=== PATIENT | female | born 1970 | race Hispanic/Latino ===

== ENCOUNTER 2018-03-26 07:35 | Emergency (ER) | payer OTHER ==
[2018-03-26 07:36] VITALS: BMI 20.3
--- NOTE | 2018-03-26 07:53 | ED PDOC ---
Arrival/HPI - General Time Seen by Provider: 03/26/18 07:40 Allergies/Home Meds Allergies/Adverse Reactions: Allergies No Known Allergies Allergy (Verified 12/06/12 08:54)
--- NOTE | 2018-03-26 07:54 | ED PDOC ---
Arrival/HPI - General Time Seen by Provider: 03/26/18 07:40 Historian: Patient - History of Present Illness Narrative History of Present Illness (Text): 03/26/18 07:53 A 47 year old female with no significant past medical history presents to the emergency department complaining of right eye swelling since this morning. Patient reports when she woke up earlier today and felt itchiness/irritation to her right eye and she started scratching/rubbing the area. She noticed later that the area around her eye became swollen. She denies any further irritation or itchiness. Patient notes she wears contacts but did not wear them while sleeping and only her right eye is affected. Patient denies any current eye pain, discharge, vision changes, or any other complaints. Time/Duration: 1-3 hours (Earlier this morning) Symptom Onset: Gradual Symptom Course: Improving Activities at Onset: Light Context: Home Past Medical History - Provider Review Nursing Documentation Reviewed: Yes Family/Social History - Physician Review Nursing Documentation Reviewed: Yes Family/Social History: No Known Family HX Allergies/Home Meds Allergies/Adverse Reactions: Allergies No Known Allergies Allergy (Verified 12/06/12 08:54) Review of Systems - Physician Review All systems were reviewed & negative as marked: Yes - Review of Systems Constitutional: absent: Fevers Eyes: absent: Vision Changes, Eye Pain, Other (no discharge) Physical Exam - Physical Exam Narrative Physical Exam (Text): 03/26/18 07:57 Constitutional: No acute distress. Head: Normocephalic. Atraumatic. Eyes: PERRL. EOMI. No conjunctival injection. No discharge. No foreign objects under eyelids. ENT: Moist mucous membranes. Musculoskeletal: No tenderness or swelling of extremities. Skin: No rash. No erythema. Area between right eye and right bridge, mildly edematous, nontender. No induration. Neurologic: Alert, no focal deficit. Vital Signs Reviewed: Yes Temperature: Afebrile Blood Pressure: Normal Pulse: Regular Respiratory Rate: Normal Appearance: Positive for: Well-Appearing, Non-Toxic, Comfortable Pain Distress: None Mental Status: Positive for: Alert and Oriented X 3 Medical Decision Making ED Course and Treatment: 03/26/18 08:00 Impression: 47 year old female presenting to the emergency room for mild right eye edema. Plan: -- No current signs of conjucntivitis or periorbital cellulitis. Advised watching, warm compresses if desired and to return for any concerning symptoms. - Scribe Statement The provider has reviewed the documentation as recorded by the Scribe Marjorie Abraham All medical record entries made by the Scribe were at my direction and personally dictated by me. I have reviewed the chart and agree that the record accurately reflects my personal performance of the history, physical exam, medical decision making, and the department course for this patient. I have also personally directed, reviewed, and agree with the discharge instructions and disposition. Disposition/Present on Arrival - Present on Arrival Any Indicators Present on Arrival: No - Disposition Have Diagnosis and Disposition been Completed?: Yes Diagnosis: Periorbital edema Disposition: HOME/ ROUTINE Disposition Time: 07:54 Patient Plan: Discharge Condition: STABLE Discharge Instructions (ExitCare): Orbital Cellulitis, Conjunctivitis ([place]) (DC) Referrals: Annie HAYDEN,Rosalino Moreno MD [Primary Care Provider] - Follow up with primary Forms: [employer] (German)
[2018-03-26 07:55] VITALS: BP 112/83; PULSE 86; RESP 18; O2SAT 98
[2018-03-26 08:08] VITALS: TEMP 98
== END 2018-03-26 08:00 | disposition home or self-care (01) ==
LOC: ED 07:35
DX: H57.89 Other specified disorders of eye and adnexa (principal)

== ENCOUNTER 2018-06-11 06:49 | Outpatient (CLI) | payer OTHER | END 2018-06-11 06:50 | disposition home or self-care (01) | LOC: RAD 06:49 ==

== ENCOUNTER 2018-06-16 05:59 | Outpatient (CLI) | payer OTHER | END 2018-06-16 06:00 | disposition home or self-care (01) | LOC: LAB 05:59 ==

== ENCOUNTER 2018-06-30 09:12 | Outpatient (CLI) | payer OTHER | END 2018-06-30 09:13 | disposition home or self-care (01) | LOC: LAB 09:12 ==

== ENCOUNTER 2018-07-09 07:09 | Day surgery (SDC) | payer OTHER ==
[2018-07-09] MEDS ORDERED: Propofol 10 mg/ml Inj (20 ML) ONE (08:52)
[2018-07-09] MEDS ORDERED: Lidocaine 1% Inj (20ml) ONE (08:53)
[2018-07-09] MEDS ORDERED: Midazolam 2 MG/2 ML VIAL ONE (09:07)
[2018-07-09] MEDS ORDERED: Sodium Chloride 0.9% 1,000 ML IV SCH (09:30)
[2018-07-09 09:41] VITALS: RESP 16
[2018-07-09 09:56] VITALS: O2SAT 98
[2018-07-09 10:27] VITALS: PULSE 62; TEMP 98.1
[2018-07-09 10:44] VITALS: BP 106/57
== END 2018-07-09 11:50 | disposition home or self-care (01) ==
LOC: ENDO 07:09
PROVIDERS: ATTEND Internal Medicine Gastroenterology
DX: K21.9 Gastro-esophageal reflux disease without esophagitis (principal); K29.50 Unspecified chronic gastritis without bleeding; D50.9 Iron deficiency anemia, unspecified; R14.0 Abdominal distension (gaseous)
CPT/HCPCS: 43239; 84703; 88305; 88342; J2250; J2405; J2704; J7030; J7040

== ENCOUNTER 2018-07-14 18:18 | Outpatient (CLI) | payer OTHER | END 2018-07-14 18:19 | disposition home or self-care (01) | LOC: OPLAB 18:18 ==

== ENCOUNTER 2018-08-11 18:41 | Outpatient (CLI) | payer OTHER | END 2018-08-11 18:42 | disposition home or self-care (01) | LOC: OPLAB 18:41 ==

== ENCOUNTER 2018-08-20 10:23 | Outpatient (CLI) | payer OTHER | END 2018-08-20 10:24 | disposition home or self-care (01) | LOC: RAD 10:23 ==

== ENCOUNTER 2018-09-22 17:40 | Outpatient (CLI) | payer OTHER | END 2018-09-22 17:41 | disposition home or self-care (01) | LOC: OPLAB 17:40 ==